=== PATIENT | male | born 1945 | race Caucasian/White ===

== ENCOUNTER 2018-01-31 08:46 | Emergency (ER) | payer OTHER ==
--- NOTE | 2018-01-31 09:12 | EDPHY ---
H & P Stated Complaint: Leaned over to cough hard last night--syncoped hit head lac Time Seen by Provider: 01/31/18 08:55 HPI/ROS: CHIEF COMPLAINT: Head injury, syncope HISTORY OF PRESENT ILLNESS: 72-year-old male arrives via private vehicle, no anticoagulant use, no cardiac or CVA history, states that yesterday evening at 9 :00 p.m. He had a sip of water, states that it "went down the wrong tube"and started coughing, bent over to cough and had a syncopal episode. This was witnessed by his . He impacted his head. There is no seizure activity. There is no postictal.. No incontinence to stool or urine. No antecedent alcohol use. He woke this morning complaining of nonprogressive non thunderclap headache as well as left rib pain. He currently denies: Midline C- spine pain, peripheral paresthesia, weakness, numbness, abdominal pain, nausea, vomiting, peripheral musculoskeletal complaints Patient also notes after taking a care being [place] 2 weeks ago with his grandchildren he developed URI symptoms, sinus congestion, nonproductive PRIMARY CARE PROVIDER: [facility] REVIEW OF SYSTEMS: 10 systems reviewed and negative with the exception of the elements mentioned in the history of present illness PAST MEDICAL/SURGICAL HISTORY: no anticoagulant use, hypertension. Hyperlipidemia. SOCIAL HISTORY: denies alcohol use at time of incident PHYSICAL EXAM 1) GENERAL: Well-developed, well-nourished, alert and oriented. Appears to be in no acute distress. Answering questions appropriately. 2) HEAD: Normocephalic, left frontal 4 cm linear superficial laceration. 3) HEENT: Pupils equal, round, reactive to light bilaterally. Negative Horners. Nasopharynx, oropharynx, clear. No deformity or angulation of nose. No septal hematoma. No rhinorrhea. No oral trauma. Ears bilaterally with normal tympanic membranes. No hemotympanum. No fluid or blood in the external auditory canal. No raccoon eyes. No Mina sign. Teeth are normally aligned with no gross malocclusion, TMJ bilaterally nontender, facial bones nontender including the zygomatic arch, maxilla mandible. 4) NECK: No cervical collar is on. Posterior cervical spine is nontender, no stepoff, no effusion. Full range of motion which does not elicit any midline cervical spine pain, no posterior midline tenderness, no step-off. 5) LUNGS: Clear to auscultation bilaterally, no wheezes, no rhonchi, no retractions. Tender to palpation left lower ribs anterior axillary line. No obvious signs of trauma. No flaring, no grunting. Moving symmetrically. No crepitus. 6) HEART: Regular rate and rhythm, 7) ABDOMEN: No guarding, no rebound, no focal tenderness, no peritoneal signs, no signs of trauma, no ecchymosis 8) MUSCULOSKELETAL: Moving all extremities, no focal areas of tenderness, no obvious trauma. 9) BACK: No midline vertebral tenderness, no fluctuance, no step-off, no obvious trauma, no visual or palpable abnormality. 10) SKIN: No laceration. No abrasion DIFFERENTIAL DIAGNOSIS: In no particular order including but not limited to vasovagal syncope, cough syncope, MA - Personal History Current Tetanus/Diphtheria Vaccine: Yes Current Tetanus Diphtheria and Acellular Pertussis (TDAP): Yes Tetanus Vaccine Date: 2016 - Medical/Surgical History Hx Asthma: No Hx Chronic Respiratory Disease: No Hx Diabetes: No Hx Cardiac Disease: No Hx Renal Disease: No Hx Cirrhosis: No Hx Alcoholism: No Hx HIV/AIDS: No Hx Splenectomy or Spleen Trauma: No Other PMH: HTN. hyperlipidemia. prostate ca - Social History Smoking Status: Never smoked Constitutional: Initial Vital Signs Temperature (C) 36.7 C 01/31/18 08:51 Heart Rate 89 01/31/18 08:51 Respiratory Rate 16 01/31/18 08:51 Blood Pressure 169/91 H 01/31/18 08:51 O2 Sat (%) 97 01/31/18 08:51 O2 Delivery Mode Room Air Allergies/Adverse Reactions: tetracycline [Tetracycline] Allergy (Verified 03/19/14 08:13) Rash Home Medications: Medication Instructions Recorded Allopurinol [Allopurinol 100 MG 150 mg PO DAILY 05/29/11 (*)] Atorvastatin Calcium [Lipitor 10 10 mg PO DAILY 05/29/11 mg (RX)] Metoprolol Tartrate [Lopressor 25 25 mg PO BID 05/29/11 mg] Flomax 0.4 MG (RX) 03/19/14 Azithromycin [Zithromax] 500 mg PO DAILY #1 tablet 01/31/18 Cialis 01/31/18 Medical Decision Making - Diagnostics Imaging Results: Imaging Impressions Head CT 01/31/18 09:08 Impression: 1. No evidence for acute intracranial abnormality. No evidence for a skull fracture. Left frontal scalp injury. 2. Mild periventricular white matter change that can be seen with small vessel ischemic disease. 3. Moderate chronic sinus related change with probable acute right maxillary sinusitis. Results called and discussed with Salvador Mancilla PA-C on January 31, 2018 at 0950 hours. Ribs w/Chest X-Ray 01/31/18 09:09 Impression: 1. No evidence for acute cardiopulmonary abnormality. 2. No evidence for definite left rib fracture. 3. Old healed posterior right rib fractures. Images reviewed myself Procedures: Procedure: Laceration repair with tissue adhesive Verbal consent was obtained from the patient. The 4 cm laceration on the left forehead. The wound was scrubbed and explored to its base with a gloved finger. No foreign body seen, no foreign bodies palpated. There were no deep structures involved. The wound was repaired with tissue adhesive. The procedure was performed by myself. Patient has been informed that scarring will occur, although efforts have been made to minimize this. ED Course/Re-evaluation: 9:13 a.m. : Head CT ordered in this patient for trauma for the following indication: Greater than 65 years old. Will also obtain diagnostic studies including troponin, EKG, chest x-ray. Care of patient under supervision of secondary supervising physician Dr Roman with whom I discussed case. 10:15 a.m.: Patient was re-examined with serial exams. His wound was closed by myself in the ER with tissue adhesive. Regarding his episode last evening, I think this is more likely secondary to cough syncope, vasovagal syncope. In the absence of cardiac disease history beyond hypertension hyperlipidemia, in the presence of normal troponin, normal sinus EKG, I think that acute coronary syndrome is less than likely in this patient. I do not think that hospital admission or further diagnostic studies are indicated. In Addition his head CT imaging is negative for posttraumatic sequelae. Given incentive spirometer. The patient also notes 2 weeks of URI symptoms which have improved significantly after being on a cruise ship with his grandchildren. No GI complaints. He is noted to have sinusitis on CT imaging which is consistent with his subacute complaints. I think a trial of antibiotics is appropriate. Given azithromycin. Plan will be discharge home with my usual customary head injury precautions and instructions. - Data Points Laboratory Results: Laboratory Results 01/31/18 09:19 01/31/18 09:19 01/31/18 01/31/18 01/31/18 09:23 09:19 09:19 WBC 7.13 10^3/uL 10^3/uL (3.80-9.50) RBC 4.87 10^6/uL 10^6/uL (4.40-6.38) Hgb 15.9 g/dL g/dL (13.7-17.5) Hct 45.4 % % (40.0-51.0) MCV 93.2 fL fL (81.5-99.8) MCH 32.6 pg pg (27.9-34.1) MCHC 35.0 g/dL g/dL (32.4-36.7) RDW 11.9 % % (11.5-15.2) Plt Count 169 10^3/uL 10^3/uL (150-400) MPV 10.8 fL fL (8.7-11.7) Neut % (Auto) 72.6 % % (39.3-74.2) Lymph % (Auto) 16.4 % % (15.0-45.0) Day % (Auto) 9.1 % % (4.5-13.0) Eos % (Auto) 1.1 % % (0.6-7.6) Baso % (Auto) 0.4 % % (0.3-1.7) Nucleat RBC Rel Count 0.0 % % (0.0-0.2) Absolute Neuts (auto) 5.17 10^3/uL 10^3/uL (1.70-6.50) Absolute Lymphs (auto) 1.17 10^3/uL 10^3/uL (1.00-3.00) Absolute Monos (auto) 0.65 10^3/uL 10^3/uL (0.30-0.80) Absolute Eos (auto) 0.08 10^3/uL 10^3/uL (0.03-0.40) Absolute Basos (auto) 0.03 10^3/uL 10^3/uL (0.02-0.10) Absolute Nucleated RBC 0.00 10^3/uL 10^3/uL (0-0.01) Immature Gran % 0.4 % % (0.0-1.1) Immature Gran # 0.03 10^3/uL 10^3/uL (0.00-0.10) Sodium 138 mEq/L mEq/L (135-145) Potassium 4.7 mEq/L mEq/L (3.3-5.0) Chloride 103 mEq/L mEq/L (97-110) Carbon Dioxide 27 mEq/l mEq/l (22-31) Anion Gap 8 mEq/L mEq/L (6-14) BUN 22 mg/dL mg/dL (7-23) Creatinine 1.1 mg/dL mg/dL (0.7-1.3) Estimated GFR > 60 Glucose 135 mg/dL H mg/dL (70-100) Calcium 10.1 mg/dL mg/dL (8.5-10.4) POC Troponin I 0.00 ng/mL ng/mL (0.00-0.08) Point of Care Test Results: Chemistry 01/31/18 09:23 POC Troponin I 0.00 ng/mL ng/mL (0.00-0.08) Departure - Departure Disposition: Home, Routine, Self-Care Clinical Impression: Cough syncope Head injury due to trauma Qualifiers: Encounter type: initial encounter Qualified Code(s): S09.90XA - Unspecified injury of head, initial encounter Laceration of forehead Qualifiers: Encounter type: initial encounter Qualified Code(s): S01.81XA - Laceration without foreign body of other part of head, initial encounter Condition: Good Instructions: Laceration (ED), Head Injury (ED) Additional Instructions: ALTHOUGH THERE IS NO EVIDENCE OF SERIOUS HEAD INJURY AT THIS TIME, DELAYED SIGNS CAN APPEAR 24 TO 48 HOURS AFTER INJURY. PLEASE RETURN TO THE EMERGENCY DEPARTMENT (ED) IMMEDIATELY IF YOU HAVE INCREASED HEADACHE, PERSISTENT HEADACHE , VOMITING, WEAKNESS, CONFUSION OR VISUAL PROBLEMS. WE RECOMMEND THAT YOU DO NOT RESUME CONTACT SPORTS OR ACTIVITIES THAT TAKE COORDINATION OR BALANCE SUCH SKIING OR RIDING A BICYCLE UNTIL CLEARED TO DO SO BY YOUR DOCTOR OR BY A NEUROLOGIST. Referrals: Follow-up, with your PCP at [facility] in 2 [Other] - As per Instructions Prescriptions: Azithromycin [Zithromax] 500 mg PO DAILY #1 tablet
[2018-01-31] MEDS ORDERED: SKIN ADHESIVE (DERMABOND) 1 EACH TP ONE (09:16)
--- NOTE | 2018-01-31 09:24 | CPEKG ---
Test Reason : OPEN Blood Pressure : / mmHG Vent. Rate : 084 BPM Atrial Rate : 084 BPM P-R Int : 197 ms QRS Dur : 093 ms QT Int : 350 ms P-R-T Axes : 046 025 048 degrees QTc Int : 414 ms Sinus rhythm Confirmed by Hira Roman ([id number]) on 01/31/2018 9:23:54 AM Referred By: Confirmed By:Hira Roman
[2018-01-31 09:37] LABS: PLATELET COUNT 169 10^3/uL (150-400)
[2018-01-31 10:29] VITALS: BP 150/89
== END 2018-01-31 10:30 | disposition home or self-care (01) ==
PROC: 0HQ1XZZ Repair Face Skin, External Approach (ICD-10-PCS; principal; 2018-01-31)
DX: R55 Syncope and collapse (principal); S01.81XA Laceration without foreign body of other part of head, initial encounter; X58.XXXA Exposure to other specified factors, initial encounter; Y93.9 Activity, unspecified; Y92.9 Unspecified place or not applicable
CPT/HCPCS: 84484-PO